=== PATIENT | male | born 1945 | race Caucasian/White ===

== ENCOUNTER 2023-04-07 11:28 | Emergency (ER) | payer OTHER, SELFPAY ==
[2023-04-07 11:48] VITALS: BP 136/68; PULSE 58; RESP 18; TEMP 36.9; O2SAT 95; BMI 23.0
--- NOTE | 2023-04-07 12:44 | ED_ITS ---
HPI - Abdominal Pain General Chief Complaint: Abdominal Pain Stated Complaint: poss hernia Time Seen by Provider: 04/07/23 12:34 Source: patient Mode of arrival: Ambulatory History of Present Illness HPI narrative: 77-year-old male with past medical history CAD, status post stents, hypertension presents to the ED with 2 days of left lower quadrant pain. Patient states he has a distant history of inguinal hernia, for which he had surgery. Patient states that he has been very active working at home in the [employer] and on a tractor since yesterday. Patient states that starting yesterday, he felt sore in his left lower abdomen, states that it felt like he had pulled something. Patient states that the pain worsened this morning with coughing. Patient denies feeling any lumps in his groin. Patient denies chest pain, shortness of breath, fever, chills, nausea, vomiting, flank pain, dysuria, lightheadedness, dizziness, syncope. Patient denies diarrhea or constipation. Patient denies hematochezia, melena. Patient's last bowel movement was this morning, which he states was normal. [facility] and he was directed [facility] for further evaluation. In the ED patient denies abdominal discomfort. Related Data Previous Rx's Medication Instructions Recorded ciprofloxacin HCl 500 mg tablet 500 mg PO BID 7 days #14 tabs 04/07/23 metronidazole 500 mg tablet 500 mg PO Q8H 5 days #15 tabs 04/07/23 Allergies Allergy/AdvReac Type Severity Reaction Status Date / Time No Known Drug Allergies Allergy Verified 04/07/23 11:54 Review of Systems Review of Systems ROS Unobtainable: All systems reviewed & are unremarkable except as noted in HPI and below Constitutional Constitutional: Denies chills, Denies fatigue, Denies fever(s), Denies frequent falls, Denies lethargy and Denies weakness Eyes Eyes: Denies change in vision, Denies eye discharge, Denies irritation and Denies loss of vision ENT Ears, Nose, Mouth, and Throat: Denies change in voice, Denies dizziness, Denies neck pain, Denies sore throat and Denies throat swelling Cardiovascular Cardiovascular: Denies chest pain, Denies irregular heart rhythm, Denies lightheadedness, Denies palpitations, Denies dyspnea, Denies dyspnea on exertion and Denies orthopnea Respiratory Respiratory: Denies cough, Denies dyspnea, Denies dyspnea on exertion and Denies wheezing Gastrointestinal Gastrointestinal: Reports abdominal pain, Denies change in bowel habits, Denies diarrhea, Denies nausea and Denies vomiting Genitourinary Genitourinary: Denies hematuria, Denies flank pain, Denies urinary incontinence and Denies urinary urgency Musculoskeletal Musculoskeletal: Denies back pain, Denies muscle weakness, Denies neck pain, Denies numbness and Denies tingling Integumentary/Breasts Skin/Breast: Denies pruritus, Denies erythema, Denies rash and Denies wounds Neurologic Neurologic: Denies behavioral changes, Denies confusion, Denies dizziness, Denies frequent falls, Denies loss of vision, Denies numbness, Denies tingling and Denies weakness Psychiatric Psychiatric: Denies anxiety, Denies behavioral changes, Denies confusion, Denies depression, Denies homicidal ideation and Denies suicidal ideation Endocrine Endocrine: Denies fatigue, Denies flushing and Denies palpitations Hematologic/Lymphatic Hematologic/Lymphatic: Denies easy bruising Allergic/Immunologic Allergic/Immunologic: Denies urticaria, Denies throat swelling and Denies wheezing Patient History Social History Smoking Status: Current every day smoker Smoking Status: Current every day smoker alcohol intake frequency: 0-2 drinks per day Substance Use Type: does not use Exam Narrative Exam Narrative: Const General:?cooperative, healthy appearing and comfortable [facility] Head:?normal to inspection Ears:?hearing grossly normal bilaterally Nose:?external nose normal Face and sinus:?normal facial exam and sinuses nontender Mouth:?oral mucosae normal Throat:?posterior oropharynx normal Eyes General:?appearance normal, both eyes and all related structures Neck Neck:?normal visual inspection and no lymphadenopathy noted Resp Effort & Inspection:?normal respiratory effort Auscultation:?clear to auscultation bilaterally Cardio Rate:?regular rate Rhythm:?regular rhythm GI Abdomen is soft, nondistended. Abdomen is tender to palpation in the left lower quadrant. There is no CVA tenderness. Neuro General:?patient alert, patient awake and patient oriented x3 Initial Vital Signs Initial Vital Signs: Vital Signs Temperature 98.4 F 04/07/23 11:48 Pulse Rate 58 L 04/07/23 11:48 Respiratory Rate 18 04/07/23 11:48 Blood Pressure 136/68 04/07/23 11:48 Pulse Oximetry 95 04/07/23 11:48 Oxygen Delivery Method Room Air 04/07/23 11:48 Course Orders Ordered: ED Orders 04/07/23 12:55 CBC Auto Diff [Complete Blood Count AUTO DIFF] Stat CMP [Comprehensive Metabolic Panel] Stat Lipase Stat PT [Prothrombin Time INR] Stat PTT Partial Thromboplastin Feng Stat 04/07/23 12:57 Urine Culture Stat Urine Microscopic Stat 04/07/23 14:05 CT abdomen pelvis w con Stat Discontinued Medications Ciprofloxacin (Ciprofloxacin 250 Mg Tablet) 500 mg PO NOW ONE Stop: 04/07/23 15:00 Last Admin: 04/07/23 15:04 Dose: 500 mg Documented By: AKASH Metronidazole (Metronidazole 500 Mg Tablet) 500 mg PO NOW ONE Stop: 04/07/23 15:00 Last Admin: 04/07/23 15:04 Dose: 500 mg Documented By: AKASH Vital Signs Vital signs: Vital Signs - 8 hr 04/07/23 15:17 Pulse Rate 59 L Respiratory Rate 12 Blood Pressure 159/82 H Pulse Oximetry 95 Oxygen Delivery Method Room Air MDM - Abdominal Pain Lab Data 04/07/23 12:55 04/07/23 12:55 Labs: Lab Results 04/07/23 04/07/23 04/07/23 Range/Units 12:55 12:55 12:55 WBC 14.6 H (4.5-11.0) X10^3/uL RBC 4.79 (4.5-5.9) X10^6/uL Hgb 15.2 (13.5-17.5) g/dL Hct 43.9 (41-53) % MCV 91.7 (80-100) fL MCH 31.7 (26-34) PG MCHC 34.6 (30-36) % RDW 13.6 (11.6-14.8) % Plt Count 228 (150-400) X10^3/uL Neut % (Auto) 79.7 H (50-75) % Lymph % (Auto) 10.3 L (25-40) % [place] % (Auto) 9.4 (3-14) % Eos % (Auto) 0.3 L (2-4) % Baso % (Auto) 0.3 (0-2) % Neut # (Auto) 63212 H (2098-8820) /uL Lymph # (Auto) 1500 (9379-2849) /uL [place] # (Auto) 1400 H (0-900) /uL Eos # (Auto) 0 (0-450) /uL Baso # (Auto) 0 (0-100) /uL PT 13.3 H (10.1-12.7) SECONDS INR 1.2 (0.9-1.3) APTT 30 (26-36) SECONDS Sodium 136 L (137-145) mmol/L Potassium 3.7 (3.4-5.1) mmol/L Chloride 98 (98-107) mmol/L Carbon Dioxide 30 (22-32) mmol/L BUN 14 (9-20) mg/dL Creatinine 0.71 (0.66-1.25) mg/dL Estimated GFR > 60 (>60) mL/min BUN/Creatinine Ratio 19.7 (6-22) Glucose 105 (80-110) mg/dL Calcium 9.2 (8.4-10.2) mg/dL Total Bilirubin 1.3 (0.2-1.3) mg/dL AST 19 (17-59) IU/L ALT 17 (<50) IU/L Alkaline Phosphatase 63 (38-126) U/L Total Protein 7.3 (6.3-8.2) g/dL Albumin 4.3 (3.5-5.0) g/dL Globulin 3.0 (1.7-4.1) g/dL Albumin/Globulin Ratio 1.4 (1.0-2.8) Lipase 33 (23-300) U/L Urine RBC (0-5/HPF) Urine WBC (0-5/HPF) Ur Squamous Epith Cells (0-5/HPF) Urine Bacteria (None) Ur Culture Indicated? 04/07/23 Range/Units 12:57 WBC (4.5-11.0) X10^3/uL RBC (4.5-5.9) X10^6/uL Hgb (13.5-17.5) g/dL Hct (41-53) % MCV (80-100) fL MCH (26-34) PG MCHC (30-36) % RDW (11.6-14.8) % Plt Count (150-400) X10^3/uL Neut % (Auto) (50-75) % Lymph % (Auto) (25-40) % [place] % (Auto) (3-14) % Eos % (Auto) (2-4) % Baso % (Auto) (0-2) % Neut # (Auto) (1102-5186) /uL Lymph # (Auto) (1475-6417) /uL [place] # (Auto) (0-900) /uL Eos # (Auto) (0-450) /uL Baso # (Auto) (0-100) /uL PT (10.1-12.7) SECONDS INR (0.9-1.3) APTT (26-36) SECONDS Sodium (137-145) mmol/L Potassium (3.4-5.1) mmol/L Chloride (98-107) mmol/L Carbon Dioxide (22-32) mmol/L BUN (9-20) mg/dL Creatinine (0.66-1.25) mg/dL Estimated GFR (>60) mL/min BUN/Creatinine Ratio (6-22) Glucose (80-110) mg/dL Calcium (8.4-10.2) mg/dL Total Bilirubin (0.2-1.3) mg/dL AST (17-59) IU/L ALT (<50) IU/L Alkaline Phosphatase (38-126) U/L Total Protein (6.3-8.2) g/dL Albumin (3.5-5.0) g/dL Globulin (1.7-4.1) g/dL Albumin/Globulin Ratio (1.0-2.8) Lipase (23-300) U/L Urine RBC None seen (0-5/HPF) Urine WBC 10-30/hpf H (0-5/HPF) Ur Squamous Epith Cells None seen (0-5/HPF) Urine Bacteria Many (>30) H (None) Ur Culture Indicated? Specimen cultured Point of care testing: Urine Dip Bedside Urine Glucose Negative Bedside Urine Bilirubin - Negative Bedside Urine Ketone - Negative Urine Specific [place] 1.010 Bedside Urine Occult Blood +/- Bedside Urine pH 6.0 Bedside Urine Protein - Negative Bedside Urine Urobilinogen - Negative Bedside Urine Nitrite - Negative Bedside Urine Leukocytes + 70 Esterase MDM Narrative Medical decision making narrative: 77-year-old male with past medical history CAD, status post stents, hypertension presents to the ED with 2 days of left lower quadrant pain. Concern for diverticulitis versus hernia versus other intra-abdominal pathology versus mu sculoskeletal sprain/strain versus other. Will obtain labs, urine, lipase, CT abdomen pelvis. Patient declines pain medication. Will reassess. UA positive for UTI. WBC elevated to 14.6. Labs otherwise within normal limits. CT abdomen pelvis shows thickening of the sigmoid colon with minimal p ericolonic stranding. Overall appearance is suspicious for early, developing colitis, secondary to diverticulitis. There is a focus of enhancement within the liver possibly related to fascia filling hemangioma and further evaluation with ultrasound or CT/MRI with hepatic protocol may be obtained on a nonemergent basis. Discussed findings with patient. Started patient on Cipro and Flagyl to cover both the UTI and the colitis. First dose of antibiotics given in the ED. recommend clear liquid diet, advancing to a normal diet over the next 3-5 days. Recommend follow-up with PCP. ED return precautions discussed with patient. Patient verbalized understanding. Medical records reviewed: Yes Discharge Plan Departure Patient Disposition: Home Clinical Impression: Diverticulitis, UTI (urinary tract infection) Instructions: DI for Diverticulitis, DI for Urinary Tract Infection (UTI) Activity Restrictions/Additional Instructions: You were evaluated in the ED today for left-sided abdominal pain. Your urine does show a urinary tract infection. The CT shows early developing colitis, which is secondary to diverticulitis. You are being prescribed antibiotics to treat both the UTI and the colitis. Please take the antibiotics as prescribed. Your 1st dose of antibiotics have been given in the ED. you may also limit your diet to a clear liquid diet, slowly advancing to a normal diet over the next 3-5 days. Return to the ED if you have worsening symptoms, persistent vomiting, wo rsening abdominal pain. Prescriptions: New ciprofloxacin HCl 500 mg tablet 500 mg PO BID 7 Days Qty: 14 0RF metronidazole 500 mg tablet 500 mg PO Q8H 5 Days Qty: 15 0RF Referrals: Shelley Leyva MD [Primary Care Provider] - Stand Alone Forms: Patient Portal/API
[2023-04-07 13:09] LABS: Add Manual Diff / Slide Review NO; Basophils Absolute Auto 0 /uL (0-100); Basophils Percent Auto 0.3 % (0-2); Eosinophils Absolute Auto 0 /uL (0-450); Eosinophils Percent Auto 0.3 % (2-4); Hematocrit 43.9 % (41-53); Hemoglobin 15.2 g/dL (13.5-17.5); Lymphocytes Absolute Auto 1500 /uL (1100-4500); Lymphocytes Percent Auto 10.3 % (25-40); Mean Corpuscular HGB Conc 34.6 % (30-36); Mean Corpuscular Hemoglobin 31.7 PG (26-34); Mean Corpuscular Volume 91.7 fL (80-100); Monocytes Absolute Auto 1400 /uL (0-900); Monocytes Percent Auto 9.4 % (3-14); Neutrophils Absolute Auto 11700 /uL (1500-7000); Neutrophils Percent Auto 79.7 % (50-75); Platelet Count 228 X10^3/uL (150-400); Red Blood Cell Count 4.79 X10^6/uL (4.5-5.9); Red Cell Distribution Width 13.6 % (11.6-14.8); White Blood Cell Count 14.6 X10^3/uL (4.5-11.0)
[2023-04-07 13:20] LABS: INR 1.2 (0.9-1.3); Prothrombin Time 13.3 SECONDS (10.1-12.7)
[2023-04-07 13:23] LABS: PTT Partial Thromboplastin Tim 30 SECONDS (26-36)
[2023-04-07 13:24] LABS: Alanine Aminotransferase 17 IU/L (<50); Albumin 4.3 g/dL (3.5-5.0); Albumin Globulin Ratio 1.4 (1.0-2.8); Alkaline Phosphatase 63 U/L (38-126); Aspartate Aminotransferase 19 IU/L (17-59); BUN Creatinine Ratio 19.7 (6-22); Bilirubin Total 1.3 mg/dL (0.2-1.3); Blood Urea Nitrogen 14 mg/dL (9-20); Calcium 9.2 mg/dL (8.4-10.2); Carbon Dioxide 30 mmol/L (22-32); Chloride 98 mmol/L (98-107); Estimated Glomerular Filt Rate > 60 mL/min (>60); Glucose 105 mg/dL (80-110); HEMOLYSIS < 15 (0-50); Lipase 33 U/L (23-300); Potassium 3.7 mmol/L (3.4-5.1); Sodium 136 mmol/L (137-145); Total Protein 7.3 g/dL (6.3-8.2)
[2023-04-07 13:45] LABS: Bacteria Urine Many (>30); Culture Indicated Urine Specimen Cultured; RBC Urine None Seen (0-5/HPF); Squamous Epithelial Cell Urine None Seen (0-5/HPF); WBC Urine 10-30/HPF (0-5/HPF)
--- NOTE | 2023-04-07 14:05 | DI.CT.S_ITS ---
PROCEDURE: CT ABDOMEN PELVIS W CON INDICATIONS: LLQ pain TECHNIQUE: After the administration of oral and IV contrast, axial sections were acquired from the lung bases to the pubic symphysis. Coronal and sagittal reformats were performed. For radiation dose reduction, the following was used: automated exposure control, adjustment of mA and/or kV according to patient size. COMPARISON: [facility], CT, CT ABD PELVIS W&WO CON IVP, 06/02/2016, 10:36. FINDINGS: Image quality: Excellent. Lung bases: Rounded opacity along the medial aspect of the right middle lobe is unchanged. Heart: No significant findings. ABDOMEN: Liver: Hepatic steatosis. Scattered areas of low attenuation are present within the liver unchanged and suspected to be related to small cysts versus hemangiomas. There is an ill-defined focus of enhancement in the lateral superior right hepatic lobe measuring 1.9 cm on series 2, image 21. This is not well seen on prior exam. Gallbladder: Unremarkable. Biliary ducts: Unremarkable. Pancreas: Unremarkable. Spleen: Unremarkable. Adrenal Glands: Unchanged left adrenal nodularity. Kidneys and Ureters: Low-attenuation foci within the right kidney unchanged and likely representing simple cysts. Stomach and Bowel: Stomach, small bowel loops, and colon are nonobstructive. Colonic diverticular present. There is thickening of the sigmoid colon with minimal pericolonic stranding. Peritoneum: No abnormal intraperitoneal fluid. No free air. Ventral Wall: No hernia. Abdominal Nodes: No retroperitoneal or mesenteric adenopathy by size criteria. Vessels: Aorta and inferior vena cava are normal in size. PELVIS: Pelvic Organs: Unremarkable. Bladder: Unremarkable. Pelvic Nodes: No enlarged lymph nodes. Miscellaneous: No inguinal hernias are seen. Bones: Unremarkable. IMPRESSION: Thickening of the sigmoid colon with minimal pericolonic stranding. Overall appearance is suspicious for early, developing colitis, secondary to diverticulitis. Focus of enhancement within the liver possibly related to flash filling hemangioma. However, further evaluation with ultrasound or CT/MRI with hepatic protocol may be obtained on a nonemergent basis. Dictated by: Arabella Champion M.D. on 04/07/2023 at 14:35 Approved by: Arabella Champion M.D. on 04/07/2023 at 14:52
[2023-04-07] MEDS: CIPROFLOXACIN 250 MG TABLET 500 MG PO (15:04)
[2023-04-07] MEDS: metroNIDAZOLE 500 MG TABLET PO (15:04)
[2023-04-07 15:17] VITALS: BP 159/82; PULSE 59; RESP 12; O2SAT 95
== END 2023-04-07 15:20 | disposition home or self-care (01) ==
PROVIDERS: Emergency Provider Student in an Organized Health Care Education/Training Program; PCP Internal Medicine
DX: K57.92 Diverticulitis of intestine, part unspecified, without perforation or abscess without bleeding (principal); N39.0 Urinary tract infection, site not specified
CPT/HCPCS: 36415; 74177; 80053; 81003; 81015; 83690; 85025; 85610; 85730; 87077; 87086; 87186; 99284; Q9967

== ENCOUNTER → 2023-07-01 16:40 | Outpatient (CLI) | payer OTHER, SELFPAY ==
--- NOTE | 2023-07-01 | DI.MRI.S_ITS ---
PROCEDURE: MR ABDOMEN LIVER PROTOCOL INDICATIONS: Hemangioma of intra-abdominal structures TECHNIQUE: Coronal HASTE, axial 2D FLASH in- and [id number]; axial breath-hold T2 FSE. Dynamic axial VIBE during the administration of contrast; post-contrast coronal VIBE or 2D FLASH with fat saturation from the hepatic dome to the iliac crests. Optional diffusion weighted imaging and ADC may be performed. COMPARISON: [facility], CT, CT ABD PELVIS W&WO CON IVP, 06/02/2016, 10:36. [facility], CT, CT ABDOMEN PELVIS W CON, 04/07/2023, 14:07. FINDINGS: Lung bases: No basal pleural effusions. Liver: Corresponding to the finding on the prior CT, a 1.0 cm structure is present in hepatic segment 8 which is mildly T2 hyperintense, demonstrates arterial phase hyperenhancement, and intensity mirrors blood pool on subsequent post-contrast series typical of a hemangioma. There is surrounding transient hepatic intensity difference. Few small scattered hepatic cysts also present. Solid organs: Gallbladder is unremarkable. Biliary system is non dilated. Pancreas is normal in morphology. Spleen is normal in size and enhancement. No adrenal nodules. No hydronephrosis. Nodes and vessels: No retroperitoneal or mesenteric adenopathy by size criteria. Aorta and inferior vena cava are normal in size. Bowel and peritoneum: Unenhanced bowel loops are normal in caliber. No free fluid. Colonic diverticulosis without MR evidence of acute diverticulitis. IMPRESSION: Previously described region of enhancement in the right lobe of the liver is consistent with a small hemangioma. Dictated by: Shane Mena M.D. on 07/04/2023 at 10:39 Approved by: Shane Mena M.D. on 07/04/2023 at 10:59
== END ==
PROVIDERS: PCP Internal Medicine; Referring Provider Internal Medicine; Visit Provider Internal Medicine
DX: D18.03 Hemangioma of intra-abdominal structures (principal)
CPT/HCPCS: 74183; A9579

== ENCOUNTER 2024-04-12 11:52 | Emergency (ER) | payer OTHER, SELFPAY ==
[2024-04-12 11:58] VITALS: BP 165/85; PULSE 54; RESP 16; TEMP 36.8; O2SAT 96; BMI 22.6
--- NOTE | 2024-04-12 12:10 | EKG_ITS ---
[address] [address] Test Date: 2024-04-12 Pat Name: Marco Antonio Buenrostro Department: [facility] Room: Gender: Male [employer] Box Maker: PLACIDO : [id number] Requested By: Order Number: [id number] Reading MD: Bj Abbott MD Measurements Intervals [place] Rate: 50 P: 50 SD: 172 QRS: 17 QRSD: 106 T: 1 QT: 440 QTc: 401 Interpretive Statements Sinus bradycardia Possible Left atrial enlargement Inferior infarct , age undetermined Electronically Signed On 04-12-2024 14:32:35 PDT by Bj Abbott MD
--- NOTE | 2024-04-12 12:10 | DI.RAD.S_ITS ---
PROCEDURE: XR CHEST 2V INDICATIONS: chest pain TECHNIQUE: 2 views of the chest were acquired. COMPARISON: None. FINDINGS: Surgical changes and devices: None. Lungs and pleura: Lungs are clear. No pleural effusions or pneumothorax. Mediastinum: Mediastinal contours are normal. Heart size is normal. Bones and chest wall: No suspicious bony abnormalities. Soft tissues appear unremarkable. IMPRESSION: No acute cardiopulmonary abnormality is seen. Dictated by: Franchesca Miranda MD, PhD on 04/12/2024 at 12:40 Approved by: Franchesca Miranda MD, PhD on 04/12/2024 at 12:41
--- NOTE | 2024-04-12 12:16 | ED_ITS ---
HPI - Extremity Problem <MILAGRO Henson - Last Filed: 04/12/24 14:33> General Chief complaint: Extremity Problem,Nontraumatic Stated complaint: sent by PCP, to be checked for blood clot, and UTI Time Seen by Provider: 04/12/24 12:07 Source: patient Mode of arrival: Ambulatory History of Present Illness HPI Narrative: 78-year-old male, daily smoker with history of cardiac stent placement, presents to the emergency department via family doctor recommendation. Patient was engaged in a telehealth appointment with his family doctor, and after reporting intermittent chest pain, difficulty urinating and left lower extremity swelling, was directed to come to the emergency department for evaluation. Patient endorses urinary frequency x1 month, with worsening symptoms over last 2 weeks. Patient has had intermittent chest discomfort over the last month the feels like he has a unresolved belch. Patient states that his left lower leg get swollen during the daytime but resolves overnight. Related Data Previous Rx's Medication Instructions Recorded nitrofurantoin 100 mg PO BID UTI 7 days #14 caps 04/12/24 monohydrate/macrocrystals 100 mg capsule (Macrobid) Allergies Allergy/AdvReac Type Severity Reaction Status Date / Time No Known Drug Allergies Allergy Verified 04/12/24 12:03 Review of Systems <MILAGRO Henson - Last Filed: 04/12/24 14:33> Review of Systems Narrative: Narrative: See HPI. GENERAL: Denies chills, fatigue, fever, sweats. HEENT: Denies sinus pain, ear pain, sore throat, difficulty swallowing, dizziness. RESPIRATORY: Denies dyspnea, cough, wheezing, sputum. CARDIOVASCULAR: Denies palpitations. Endorses intermittent chest pain and daily left lower extremity edema. GASTROINTESTINAL: Denies nausea, vomiting, abdominal pain, diarrhea, constipation. : Denies dysuria, incontinence, hematuria, urinary retention, flank pain. Endorses urinary frequency. MSK: Denies weakness, joint pain, or bony pain. SKIN: Denies rash, skin lesions, or pruritis. NEUROLOGIC: Denies weakness, dizziness, headache, numbness, confusion. PSYCHIATRIC: No concerning psychosocial issues. Patient History <MILAGRO Henson - Last Filed: 04/12/24 14:33> Social History Smoking Status: Current every day smoker Smoking Status: Current every day smoker alcohol intake frequency: 0-2 drinks per day Substance Use Type: does not use Exam <MILAGRO Henson - Last Filed: 04/12/24 14:33> Narrative Exam Narrative: Exam Narrative: GENERAL: This is a well-nourished, well-developed patient, in no acute distress. HEAD: Atraumatic. Normocephalic. EYES: Pupils equal round and reactive. Extraocular motions intact. No scleral icterus, injection or drainage. ENT: Nose without bleeding, purulent drainage. Airway patent. NECK: Trachea midline. No JVD or lymphadenopathy. Nontender. CARDIOVASCULAR: Regular rate and rhythm without murmurs, peripheral pulses intact, cap refill <2 sec. RESPIRATORY: Breath sounds equal and clear bilaterally. No wheezes, rales, or rhonchi. No cough. No increased respiratory effort. No accessory muscle use. GASTROINTESTINAL: Abdomen soft, non-tender, nondistended without guarding or rebound. No suprapubic pain. MSK: Moves all extremities. Normal range of motion, no clubbing or edema. Neurovascularly intact. NEURO: A&O x 3. SKIN: Warm, dry, no rashes or lesions noted. Initial Vital Signs Initial Vital Signs: Vital Signs Temperature 98.3 F 04/12/24 11:58 Pulse Rate 54 L 04/12/24 11:58 Respiratory Rate 16 04/12/24 11:58 Blood Pressure 165/85 H 04/12/24 11:58 Pulse Oximetry 96 04/12/24 11:58 Oxygen Delivery Method Room Air 04/12/24 11:58 Reviewed <Aryan Parson DO - Last Filed: 04/12/24 14:38> Initial Vital Signs Initial Vital Signs: Vital Signs Temperature 98.3 F 04/12/24 11:58 Pulse Rate 54 L 04/12/24 11:58 Respiratory Rate 16 04/12/24 11:58 Blood Pressure 165/85 H 04/12/24 11:58 Pulse Oximetry 96 04/12/24 11:58 Oxygen Delivery Method Room Air 04/12/24 11:58 Scores <MILAGRO Henson - Last Filed: 04/12/24 14:33> Wells' Criteria for DVT Active Cancer (Treatment within 6 months): No Bedridden recently >3 days or major surgery within 4 weeks: No Calf Swelling >3cm compared to other leg: No Collateral (nonvericose) superficial veins present: No Entire leg swollen: No Localized tenderness along the deep vein system: No Pitting edema, confined to symtomatic leg: Yes Paralysis, paresis, or recent plaster immobilization of ext: No Previously documented DVT: No Alternative dx to DVT as likely or more likely: Yes German criteria for DVT: -1 <Aryan Parson DO - Last Filed: 04/12/24 14:38> German Criteria for DVT Satya' criteria for DVT: -1 Course <MILAGRO Henson - Last Filed: 04/12/24 14:33> Orders Ordered: ED Orders 04/12/24 12:10 XR chest 2V Stat EKG-12 Lead Stat 04/12/24 12:16 CBC Auto Diff [Complete Blood Count AUTO DIFF] Stat CMP [Comprehensive Metabolic Panel] Stat Lipase Stat Troponin & CK Cardiac Panel Stat 04/12/24 12:44 US periph venous low extrem lt Stat 04/12/24 12:53 UA dip and micro [Urinalysis and Microscopic] Stat Urine Culture Stat Vital Signs Vital signs: Vital Signs - 8 hr 04/12/24 11:58 04/12/24 14:23 Temperature 98.3 F 97.6 F Pulse Rate 54 L 51 L Respiratory Rate 16 14 Blood Pressure 165/85 H 148/77 H Pulse Oximetry 96 94 Oxygen Delivery Method Room Air Room Air <Aryan Parson DO - Last Filed: 04/12/24 14:38> Orders Ordered: ED Orders 04/12/24 12:10 XR chest 2V Stat EKG-12 Lead Stat 04/12/24 12:16 CBC Auto Diff [Complete Blood Count AUTO DIFF] Stat CMP [Comprehensive Metabolic Panel] Stat Lipase Stat Troponin & CK Cardiac Panel Stat 04/12/24 12:44 US periph venous low extrem lt Stat 04/12/24 12:53 UA dip and micro [Urinalysis and Microscopic] Stat Urine Culture Stat Vital Signs Vital signs: Vital Signs - 8 hr 04/12/24 11:58 04/12/24 14:23 Temperature 98.3 F 97.6 F Pulse Rate 54 L 51 L Respiratory Rate 16 14 Blood Pressure 165/85 H 148/77 H Pulse Oximetry 96 94 Oxygen Delivery Method Room Air Room Air MDM - Extremity (Nontraumatic) <MILAGRO Henson - Last Filed: 04/12/24 14:33> Differential Diagnosis Differential diagnosis: Likely lower extremity edema and other (UTI, chest pain) Lab Data 04/12/24 12:16 04/12/24 12:16 Labs: Lab Results 04/12/24 04/12/24 Range/Units 12:16 12:53 WBC 9.2 (4.5-11.0) X10^3/uL RBC 4.91 (4.5-5.9) X10^6/uL Hgb 15.9 (13.5-17.5) g/dL Hct 45.9 (41-53) % MCV 93.5 (80-100) fL MCH 32.3 (26-34) PG MCHC 34.6 (30-36) % RDW 12.8 (11.6-14.8) % Plt Count 307 (150-400) X10^3/uL Neut % (Auto) 71.0 (50-75) % Lymph % (Auto) 17.2 L (25-40) % White % (Auto) 9.5 (3-14) % Eos % (Auto) 1.8 L (2-4) % Baso % (Auto) 0.5 (0-2) % Neut # (Auto) 6500 (2401-0497) /uL Lymph # (Auto) 1600 (3940-4215) /uL White # (Auto) 900 (0-900) /uL Eos # (Auto) 200 (0-450) /uL Baso # (Auto) 100 (0-100) /uL Sodium 135 L (137-145) mmol/L Potassium 4.3 (3.4-5.1) mmol/L Chloride 102 (98-107) mmol/L Carbon Dioxide 27 (22-32) mmol/L BUN 14 (9-20) mg/dL Creatinine 0.73 (0.66-1.25) mg/dL Estimated GFR > 60 (>60) mL/min BUN/Creatinine Ratio 19.2 (6-22) Glucose 106 (80-110) mg/dL Calcium 9.0 (8.4-10.2) mg/dL Total Bilirubin 1.0 (0.2-1.3) mg/dL AST 27 (17-59) IU/L ALT 15 (<50) IU/L Alkaline Phosphatase 65 (38-126) U/L Total Creatine Kinase 83 (55-170) U/L Troponin I < 0.012 (0.01-0.034) ng/mL Total Protein 7.4 (6.3-8.2) g/dL Albumin 4.5 (3.5-5.0) g/dL Globulin 2.9 (1.7-4.1) g/dL Albumin/Globulin Ratio 1.6 (1.0-2.8) Lipase 55 (23-300) U/L Urine Color Yellow Urine Appearance Cloudy Urine pH 7.0 (4.5-8.0) Ur Specific [place] 1.010 (1.000-1.035) Urine Protein Negative (Negative) Urine Glucose (UA) Negative (Negative) g/dL Urine Ketones Negative (NEGATIVE) Urine Occult Blood Trace-intact (Negative) Urine Nitrate Negative (Negative) Urine Bilirubin Negative (NEGATIVE) Urine Urobilinogen 0.2 (0.2) E.U./dL Ur Leukocyte Esterase 2+ H (NEGATIVE) Urine RBC 0-1/hpf (0-5/HPF) Urine WBC 5-10/hpf H (0-5/HPF) Ur Squamous Epith Cells 1-5 /hpf (0-5/HPF) Urine Bacteria Many (>30) H (None) Ur Culture Indicated? Specimen cultured Vol Urine Centrifuged 10ml (spun) Imaging Data Chest x-ray: Radiologist's Impression: [address] [address] XRay Report Signed Patient: Marco Antonio Buenrostro MR#: [id number] : 1945 Acct:[id number] Age/Sex: 78 / M Date of Service: 04/12/24 Loc: ED Accession Number: [id number] Procedure: XR chest 2V Ordering Provider: Aryan Rodríguez PROCEDURE: XR CHEST 2V INDICATIONS: chest pain TECHNIQUE: 2 views of the chest were acquired. COMPARISON: None. FINDINGS: Surgical changes and devices: None. Lungs and pleura: Lungs are clear. No pleural effusions or pneumothorax. Mediastinum: Mediastinal contours are normal. Heart size is normal. Bones and chest wall: No suspicious bony abnormalities. Soft tissues appear unremarkable. IMPRESSION: No acute cardiopulmonary abnormality is seen. Dictated by: Franchesca Miranda MD, PhD on 04/12/2024 at 12:40 Approved by: Franchesca Miranda MD, PhD on 04/12/2024 at 12:41 US - DVT: Radiologist's Impression: [address] [address] Ultrasound Report Signed Patient: Marco Antonio Buenrostro MR#: [id number] : 1945 Acct:[id number] Age/Sex: 78 / M Date of Service: 04/12/24 Loc: ED Accession Number: [id number] Procedure: US periph venous low extrem lt Ordering Provider: Aryan Rodríguez PROCEDURE: US PERIP VENOUS LOW EXTREM LT INDICATIONS: Lower extremity edema TECHNIQUE: Real-time imaging, as well as color and pulse Doppler interrogation, were performed of the lower extremity deep veins from the inguinal ligament to the popliteal fossa, with documentation of the visualized calf veins. COMPARISON: None. FINDINGS: The common femoral, femoral, popliteal, and the visualized calf veins are normally compressible, and free of intraluminal thrombus. Color and pulse Doppler demonstrate normal phasic intraluminal flow. There is normal augmentation response to distal compression maneuver. Lower leg edema. IMPRESSION: No findings of lower extremity deep venous thrombosis. Dictated by: Edgar Simpson M.D. on 04/12/2024 at 13:13 Approved by: Edgra Simpson M.D. on 04/12/2024 at 13:14 ECG Data Attestation EKG: I personally reviewed and interpreted this ECG as follows: Interpretation: Sinus bradycardia with vent rate of 50 PONCE 172 ms MDM Narrative Medical decision making narrative: 78-year-old male with dysuria, intermittent chest pain and left lower extremity swelling. Assessment was encouraging. Chest x-ray was normal and EKG was reassuring. Ultrasound was negative for DVT. Labs were all non concerning. Point of care urine dip was consistent with a UTI, positive leuks. Will treat with Macrobid. Informed patient that we would send off a urine sample for culture and contact him with the results of it required a change in antibiotics. Discussed plan of care and return precautions with patient, who verbalized understanding and was agreeable to course of action <Aryan Parson DO - Last Filed: 04/12/24 14:38> Lab Data Labs: Lab Results 04/12/24 04/12/24 Range/Units 12:16 12:53 WBC 9.2 (4.5-11.0) X10^3/uL RBC 4.91 (4.5-5.9) X10^6/uL Hgb 15.9 (13.5-17.5) g/dL Hct 45.9 (41-53) % MCV 93.5 (80-100) fL MCH 32.3 (26-34) PG MCHC 34.6 (30-36) % RDW 12.8 (11.6-14.8) % Plt Count 307 (150-400) X10^3/uL Neut % (Auto) 71.0 (50-75) % Lymph % (Auto) 17.2 L (25-40) % White % (Auto) 9.5 (3-14) % Eos % (Auto) 1.8 L (2-4) % Baso % (Auto) 0.5 (0-2) % Neut # (Auto) 6500 (3699-4553) /uL Lymph # (Auto) 1600 (5534-9951) /uL White # (Auto) 900 (0-900) /uL Eos # (Auto) 200 (0-450) /uL Baso # (Auto) 100 (0-100) /uL Sodium 135 L (137-145) mmol/L Potassium 4.3 (3.4-5.1) mmol/L Chloride 102 (98-107) mmol/L Carbon Dioxide 27 (22-32) mmol/L BUN 14 (9-20) mg/dL Creatinine 0.73 (0.66-1.25) mg/dL Estimated GFR > 60 (>60) mL/min BUN/Creatinine Ratio 19.2 (6-22) Glucose 106 (80-110) mg/dL Calcium 9.0 (8.4-10.2) mg/dL Total Bilirubin 1.0 (0.2-1.3) mg/dL AST 27 (17-59) IU/L ALT 15 (<50) IU/L Alkaline Phosphatase 65 (38-126) U/L Total Creatine Kinase 83 (55-170) U/L Troponin I < 0.012 (0.01-0.034) ng/mL Total Protein 7.4 (6.3-8.2) g/dL Albumin 4.5 (3.5-5.0) g/dL Globulin 2.9 (1.7-4.1) g/dL Albumin/Globulin Ratio 1.6 (1.0-2.8) Lipase 55 (23-300) U/L Urine Color Yellow Urine Appearance Cloudy Urine pH 7.0 (4.5-8.0) Ur Specific [place] 1.010 (1.000-1.035) Urine Protein Negative (Negative) Urine Glucose (UA) Negative (Negative) g/dL Urine Ketones Negative (NEGATIVE) Urine Occult Blood Trace-intact (Negative) Urine Nitrate Negative (Negative) Urine Bilirubin Negative (NEGATIVE) Urine Urobilinogen 0.2 (0.2) E.U./dL Ur Leukocyte Esterase 2+ H (NEGATIVE) Urine RBC 0-1/hpf (0-5/HPF) Urine WBC 5-10/hpf H (0-5/HPF) Ur Squamous Epith Cells 1-5 /hpf (0-5/HPF) Urine Bacteria Many (>30) H (None) Ur Culture Indicated? Specimen cultured Vol Urine Centrifuged 10ml (spun) Discharge Plan Departure Patient Disposition: Home Clinical Impression: Acute UTI Instructions: DI for Urinary Tract Infection (UTI) Activity Restrictions/Additional Instructions: *You have been diagnosed with a urinary tract infection. My assessment was encouraging. Your EKG, chest x-ray and ultrasound were all negative. Your labs were not concerning with the exception of your urine, that shows you have a urinary tract infection. We will treat this with an antibiotic for 7 days. Please make sure you take all of the mass prescribed until they are all gone. We will send off a urine sample for culture and contact you with the results if it requires a change in antibiotics. Please follow-up with your family doctor if symptoms persist or worsen. *What to do: *Please continue to take your regular medications as directed. [x ] New medication prescriptions sent to your pharmacy: [[facility]] [ ] New medication written as a paper prescription [ ] No new medications given *Please follow up with your primary care provider in 2-3 days, call for an appointment. Let them know you were seen in the Emergency Department and that we ask that you be seen in follow up. We will electronically transmit a record of today's note if your PCP is in our system *If you do not have a primary care provider please contact the [facility] line at [phone]. They will ask some questions about your medical history and help get you set up with a doctor in the community. ? Return to ER if you should have any new, worsening or concerning symptoms, such as worsening pain, severe headache, confusion, chest pain, difficulty breathing, fever greater than 101 F, shaking chills, persistent vomiting to the point that you cannot drink fluids, or other new or worsening symptoms. Prescriptions: New nitrofurantoin monohyd/m-cryst [Macrobid] 100 mg capsule 100 mg PO BID 7 Days Qty: 14 0RF Rx Instructions: must administer with a meal/food Referrals: Shelley Leyva MD [Primary Care Provider] - Stand Alone Forms: Patient Portal/API ED Sign-out <Aryan Parson, - Last Filed: 04/12/24 14:38> Cosign ED Attending Cosignature Attestation: Dr Parson Co-Sign Statement: I was available for consultation during this patient's emergency department visit. This chart is signed by myself for administrative purposes only. I did not have direct contact with this patient during this visit. They were seen independently by the APC.
--- NOTE | 2024-04-12 12:21 | PC.NURSE ---
Pt states he has had on and off swelling in his left leg and intermittent chest pain (hx of [place] w/ stents in place approx 5-6 years ago). Pt denies pain at this time. Pt states he has had urinary frequency as well; denies taking any diuretics. No obvious swelling in leg noted at this time. Pt ambulatory.
[2024-04-12 12:25] LABS: Add Manual Diff / Slide Review NO; Basophils Absolute Auto 100 /uL (0-100); Basophils Percent Auto 0.5 % (0-2); Eosinophils Absolute Auto 200 /uL (0-450); Eosinophils Percent Auto 1.8 % (2-4); Hematocrit 45.9 % (41-53); Hemoglobin 15.9 g/dL (13.5-17.5); Lymphocytes Absolute Auto 1600 /uL (1100-4500); Lymphocytes Percent Auto 17.2 % (25-40); Mean Corpuscular HGB Conc 34.6 % (30-36); Mean Corpuscular Hemoglobin 32.3 PG (26-34); Mean Corpuscular Volume 93.5 fL (80-100); Monocytes Absolute Auto 900 /uL (0-900); Monocytes Percent Auto 9.5 % (3-14); Neutrophils Absolute Auto 6500 /uL (1500-7000); Platelet Count 307 X10^3/uL (150-400); Red Blood Cell Count 4.91 X10^6/uL (4.5-5.9); Red Cell Distribution Width 12.8 % (11.6-14.8); White Blood Cell Count 9.2 X10^3/uL (4.5-11.0)
[2024-04-12 12:36] LABS: Alanine Aminotransferase 15 IU/L (<50); Albumin 4.5 g/dL (3.5-5.0); Albumin Globulin Ratio 1.6 (1.0-2.8); Alkaline Phosphatase 65 U/L (38-126); Aspartate Aminotransferase 27 IU/L (17-59); BUN Creatinine Ratio 19.2 (6-22); Blood Urea Nitrogen 14 mg/dL (9-20); Carbon Dioxide 27 mmol/L (22-32); Chloride 102 mmol/L (98-107); Creatine Kinase 83 U/L (55-170); Estimated Glomerular Filt Rate > 60 mL/min (>60); Globulin 2.9 g/dL (1.7-4.1); Glucose 106 mg/dL (80-110); HEMOLYSIS 39 (0-50); Lipase 55 U/L (23-300); Potassium 4.3 mmol/L (3.4-5.1); Sodium 135 mmol/L (137-145); Total Protein 7.4 g/dL (6.3-8.2)
--- NOTE | 2024-04-12 12:44 | DI.US.S_ITS ---
PROCEDURE: US PERIPH VENOUS LOW EXTREM LT INDICATIONS: Lower extremity edema TECHNIQUE: Real-time imaging, as well as color and pulse Doppler interrogation, were performed of the lower extremity deep veins from the inguinal ligament to the popliteal fossa, with documentation of the visualized calf veins. COMPARISON: None. FINDINGS: The common femoral, femoral, popliteal, and the visualized calf veins are normally compressible, and free of intraluminal thrombus. Color and pulse Doppler demonstrate normal phasic intraluminal flow. There is normal augmentation response to distal compression maneuver. Lower leg edema. IMPRESSION: No findings of lower extremity deep venous thrombosis. Dictated by: Edgar Simpson M.D. on 04/12/2024 at 13:13 Approved by: Edgar Simpson M.D. on 04/12/2024 at 13:14
[2024-04-12 12:47] LABS: Troponin I < 0.012 ng/mL (0.01-0.034)
[2024-04-12 13:03] LABS: Appearance Urine UA CLOUDY; Bilirubin Urine UA NEGATIVE (NEGATIVE); Color Urine UA YELLOW; Glucose Urine UA NEGATIVE (Negative); Ketones Urine UA NEGATIVE (NEGATIVE); Leukocyte Esterase Urine UA 2+ (NEGATIVE); Nitrite Urine UA NEGATIVE (Negative); Occult Blood Urine UA TRACE-INTACT (Negative); Protein Urine UA NEGATIVE (Negative); Urobilinogen Urine UA 0.2 E.U./dL (0.2)
[2024-04-12 13:15] LABS: Urine Volume 10mL (spun)
[2024-04-12 13:16] LABS: Bacteria Urine Many (>30); Culture Indicated Urine Specimen Cultured; RBC Urine 0-1/HPF (0-5/HPF); Squamous Epithelial Cell Urine 1-5 /HPF (0-5/HPF); WBC Urine 5-10/HPF (0-5/HPF)
[2024-04-12 14:23] VITALS: BP 148/77; PULSE 51; RESP 14; TEMP 36.4; O2SAT 94
== END 2024-04-12 14:47 | disposition home or self-care (01) ==
PROVIDERS: Emergency Provider Registered Nurse; PCP Internal Medicine
DX: N39.0 Urinary tract infection, site not specified (principal); R30.0 Dysuria; R00.1 Bradycardia, unspecified; R60.9 Edema, unspecified
CPT/HCPCS: 36415; 71046; 80053; 81001; 82550; 83690; 84484; 85025; 87077; 87086; 87186; 93005; 93971; 99284